=== PATIENT | female | born 1975 | race Caucasian/White ===

== ENCOUNTER 2023-03-21 13:03 | Emergency (ER) | payer MEDICARE, MEDICAID ==
[2023-03-21] MEDS ORDERED: Take Home: Amoxicillin 875 MG Tab, 2 Tab Pack PO ONE (14:01)
== END 2023-03-21 14:10 | disposition home or self-care (01) ==
LOC: VM.ED 13:03
DX: J02.0 Streptococcal pharyngitis (principal)
CPT/HCPCS: 87651; 99283; 99284; A9270